=== PATIENT | female | born 1980 | race Caucasian/White ===

== ENCOUNTER 2018-02-18 07:28 | Day surgery (SDC) | payer MEDICAID ==
[2018-02-15 15:58] LABS: BASOPHILS % (AUTO) 0.5 % (0-1); EOSINOPHILS # (AUTO) 0.2 X10'3 (0-0.9); EOSINOPHILS % (AUTO) 1.9 % (0-6); LYMPHOCYTES # (AUTO) 1.7 X10'3 (1.1-4.8); LYMPHOCYTES % (AUTO) 20.9 % (21-51); MEAN CORPUSCULAR HEMOGLOBIN 31.7 PG (27.0-31.0); MEAN CORPUSCULAR VOLUME 90.6 FL (78-98); MEAN PLATELET VOLUME 8.5 FL (7.4-10.4); MONOCYTES # (AUTO) 0.5 X10'3 (0-0.9); MONOCYTES % (AUTO) 5.7 % (2-12); NEUTROPHILS # (AUTO) 5.8 X10'3 (1.8-7.7); PRE OP HEMATOCRIT 40.4 % (35.0-45.0); PRE OP HEMOGLOBIN 14.1 g/dL (12.0-16.0); PRE OP PLATELET COUNT 227 X10'3 (140-440); RED BLOOD COUNT 4.46 X10'6 (4.20-5.60); RED CELL DISTRIBUTION WIDTH 13.4 % (11.5-14.5)
[2018-02-15 16:24] LABS: ALBUMIN 2.5 G/DL (3.4-5.0); ALBUMIN/GLOBULIN RATIO 0.6 (1.1-1.5); ALKALINE PHOSPHATASE 56 IU/L (46-116); BLOOD UREA NITROGEN 15 MG/DL (7-18); BUN/CREATININE RATIO 16.9 (6.6-38.0); CALCIUM 8.6 MG/DL (8.5-10.1); CHLORIDE 104 MMOL/L (99-107); CREATININE 0.89 MG/DL (0.40-0.90); PRE OP ALT 24 U/L (30-65); PRE OP ANION GAP 6 (8-16); PRE OP AST 19 U/L (10-37); PRE OP BILIRUB, TOTAL 1.1 MG/DL (0.0-1.0); PRE OP GLUCOSE 90 MG/DL (70-104); PRE OP POTASSIUM 3.7 MMOL/L (3.4-5.1); PRE OP SODIUM 141 MMOL/L (135-145); TOTAL CARBON DIOXIDE 30.7 MMOL/L (24-32); eGFR 72 ML/MIN
[2018-02-15 16:30] LABS: HCG SERUM QL NEGATIVE
[2018-02-18] VITALS (16 sets, daily range): BP systolic 112–142; BP diastolic 67–81
[~2018-02-18] VITALS: Ht 172.7 cm; Wt 66.0 kg
[~2018-02-18 07:28] MED LIST: BUPIVAcaine/PF 2.5mg/ml (0.25%) 10ml vial ONE; Cefazolin 2GM/50ML dext iso,osmotic IVPB IV ONE; LEVO50TA8 PO; NORG1TAB82 PO; PSYL1PAC9 PO; famotidine 20mg tablet PO ONE; ringers solution, lacted 1,000 ML IV SCH
[2018-02-18] MEDS ORDERED: ringers solution, lacted 1,000 ML IV SCH (08:41)
[2018-02-18] MEDS ORDERED: ondansetron/PF 4mg/2ml inj IV PRN (08:45)
[2018-02-18] MEDS ORDERED: morphine 4 MG/ML inj SYRINge IV PRN ×2 (08:45)
[2018-02-18] MEDS ORDERED: proCHLORperazine 10 MG/2 ml inj IV PRN (08:45)
[2018-02-18] MEDS ORDERED: meperidine/PF 25mg/ml syringe IV PRN ×3 (08:45)
[2018-02-18] MEDS ORDERED: sevoflurane 250ml liquid IH ONE (08:59)
[2018-02-18] MEDS ORDERED: fentaNYL/PF 50MCG/1 ML 2ML syringe ONE (09:04)
[2018-02-18] MEDS ORDERED: midazolam 2 mg/2 ml injection ONE (09:04)
[2018-02-18] MEDS ORDERED: rocuronium 10mg/ml inj IV ONE (09:05)
[2018-02-18] MEDS ORDERED: propofol inj 20 ML IV ONE (09:06)
[2018-02-18] MEDS ORDERED: dexamethasone sod phosphate 4mg/ml inj. ONE (09:14)
[2018-02-18] MEDS ORDERED: ondansetron/PF 4mg/2ml inj ONE (09:15)
[2018-02-18] MEDS ORDERED: neostigmine methylsulfate 1 MG/ML 10ml vial ONE (09:24)
[2018-02-18] MEDS ORDERED: glycopyrrolate 0.2mg/ml inj ONE (09:25)
[2018-02-18] MEDS ORDERED: epiNEPHrine 1 mg/ml inj SQ ONE (09:30)
[2018-02-18] MEDS ORDERED: acetaminophen 1,000mg/100ml IV 100 ML IV ONE (10:20)
== END 2018-02-18 12:23 | disposition home or self-care (01) ==
LOC: PAS 07:28
PROVIDERS: ATTEND Obstetrics & Gynecology
DX: Z30.2 Encounter for sterilization (principal); E03.9 Hypothyroidism, unspecified; E78.5 Hyperlipidemia, unspecified; Z87.01 Personal history of pneumonia (recurrent); Z88.3 Allergy status to other anti-infective agents; Z98.890 Other specified postprocedural states; Z79.899 Other long term (current) drug therapy
CPT/HCPCS: 36415; 58670; 80053; 84443; 84703; 85025; A6258; A6402; J0131; J0171; J0690; J1100; J2175; J2250; J2405; J2704; J2710; J3010; J3490; J7120; A7000